=== PATIENT | female | born 1995 | race Caucasian/White ===

== ENCOUNTER 2017-02-21 20:56 | Emergency (ER) | payer OTHER ==
[~2017-02-21] VITALS: Ht 154.9 cm; Wt 52.0 kg
[2017-02-21 20:57] VITALS: BP 112/65; PULSE 78; RESP 18; TEMP 98.2; O2SAT 100
--- NOTE | 2017-02-21 21:19 | PD ---
HPI Chief Complaint: ENT Complaint Time Seen by Provider: 21:15 Travel History International Travel<30 days: No Contact w/Intl Traveler<30days: No Traveled to known affect area: No History of Present Illness HPI 21-year-old white female presents to the department with complains of acute hearing loss in her right ear prior to arrival. She states that earlier today she had some congestion in her ear as if she had to clear her ear from barrel pressure. She states that she had a period of approximately 30-45 minutes where she had near complete loss of hearing in her right ear. She states that it suddenly resolved spontaneous before coming in. She denies any other symptoms. No headache, visual changes, difficulty thinking or speaking. No numbness, tingling or weakness. No difficulty moving her arm or leg. She denies any history of past. No allergy symptoms. No recent colds. PFSH Past Medical History Medical History: Denies Significant Hx Immunizations Current: Yes Tetanus Vaccination: < 5 Years ?: Not LMP: 01/27/17 Past Surgical History Surgical History: No Previous Surgery Social History Alcohol Use: No Tobacco Use: No Substance Use: No Allergies-Medications (Allergen,Severity, Reaction): Coded Allergies: No Known Allergies (Unverified , 02/21/17) Reported Meds & Prescriptions Reported Meds & Active Scripts Active No Active Prescriptions or Reported Medications Review of Systems Except as stated in HPI: all other systems reviewed are Neg Physical Exam Narrative GENERAL: Well-developed, well-nourished in no acute distress. Nontoxic appearing. HEAD: Normocephalic, atraumatic. EYES: Pupils equal round and reactive. Extraocular motions intact. No scleral icterus. No injection or drainage. ENT: TMs clear without erythema. The external auditory canals cerumen bilaterally. Nose: clear . Posterior pharynx is pink and moist. No tonsillar edema or exudate. Uvula midline. Airway patent. NECK: Trachea midline.Supple, nontender, moves head freely. No central bony tenderness or spasm. CARDIOVASCULAR: Regular rate and rhythm without murmurs, gallops, or rubs. RESPIRATORY: Clear to auscultation. Breath sounds equal bilaterally. No wheezes , rales, or rhonchi. GASTROINTESTINAL: Abdomen soft, non-tender, nondistended. No hepato-splenomegaly , or palpable masses. No guarding. EXTREMITIES: No clubbing, cyanosis, or edema. No joint tenderness, effusion, or edema noted. BACK: Nontender without deformity or crepitance. No flank tenderness. Data Data Last Documented VS Vital Signs Date Time Temp Pulse Resp B/P (MAP) Pulse Ox O2 Delivery O2 Flow Rate FiO2 02/21/17 20:57 98.2 78 18 112/65 (81) 100 Room Air MDM Medical Decision Making Medical Screen Exam Complete: Yes Emergency Medical Condition: Yes Medical Record Reviewed: Yes Differential Diagnosis Differential diagnoses: Eustachian tube dysfunction, cerumen impaction, otitis media, CVA Narrative Course Patient's ears are irrigated by the nursing staff. They are reevaluated. TMs are intact. Diagnosis Primary Impression: Right ear impacted cerumen Patient Instructions: General Instructions Additional Instructions: Rest. Follow-up with the clinic at school next week. Return to the ER for any problems. Med/Other Pt SpecificInfo: No Meds Exist/No RX given Scripts No Active Prescriptions or Reported Meds Disposition: 01 DISCHARGE HOME Condition: Stable Ugo Akers Feb 21, 2017 21:19
== END 2017-02-21 21:29 | disposition home or self-care (01) ==
LOC: NEPK 20:56
DX: H61.21 Impacted cerumen, right ear (principal)
CPT/HCPCS: 99283